=== PATIENT | male | born 1945 | race African-American/Black ===

== ENCOUNTER 2017-02-01 23:14 | Inpatient (IN) ==
[2017-02-02] MEDS ORDERED: ONDANSETRON 4 MG/2 ML VIAL IV STA (00:14)
[2017-02-02] MEDS ORDERED: cefTRIAXone 1,000 MG in SODIUM CHLORIDE 0.9% 100 ML IV STA (00:14)
[2017-02-02] MEDS ORDERED: methylPREDNISolone SOD SUC 125 MG/2 ML VIAL IV STA (00:14)
[2017-02-02] MEDS ORDERED: ALBUTEROL 2.5 MG/3 ML NEB RESP TX SCH (00:30)
[2017-02-02] MEDS ORDERED: cefTRIAXone 1,000 MG VIAL ONE (00:34)
[2017-02-02] MEDS ORDERED: SODIUM CHLORIDE 0.9% 100 ML IV ONE (00:34)
[2017-02-02 01:08] LABS: Basophils # 0.1 10*3/uL (0.0-0.2); Basophils % 0.5 % (0.0-0.8); Eosinophils % 0.2 % (0.00-10.9); Hematocrit 39.2 VOL% (42.0-52.0); Hemoglobin 13.3 GM/DL (14.0-18.0); Immature Granulocytes Absolute 0.11 #; Lymphocytes # 1.6 10*3/uL (1.4-4.0); Lymphocytes % 14.3 % (21.2-54.2); Mean Corpuscular HGB Conc 33.9 GM/DL (32-36); Mean Corpuscular Hemoglobin 23 PG (27-34); Mean Platelet Volume 11.3 FL (9.6-12.0); Monocytes # 1.1 10*3/uL (0.11-0.8); Monocytes % 10.1 % (1.7-12.7); Neutrophils # 8.1 10*3/uL (1.4-7.4); Neutrophils % 73.9 % (38.7-73.9); Platelet Count 137 T/CUMM (130-400); Red Blood Count 5.85 MC/CUMM (3.8-5.5); Red Cell Distribution Width 15.6 % (9.3-17.3)
[2017-02-02 01:26] LABS: Alanine Aminotransferase 12 U/L (16-61); Albumin 3.6 G/DL (3.4-5.0); Alkaline Phosphatase 61 U/L (45-117); Aspartate Amino Transferase 15 U/L (0-37); Blood Urea Nitrogen 10 MG/DL (7-18); Calcium 8.6 MG/DL (8.5-10.1); Glucose 112 MG/DL (74-106); Potassium 3.5 MMOL/L (3.5-5.1); Sodium 136 MMOL/L (136-145); Total Protein 7.4 G/DL (6.4-8.3); Troponin I Only < 0.015 NG/ML (0.00-0.045)
[2017-02-02] MEDS ORDERED: LEVOFLOXACIN 750 MG TABLET PO STA (01:35)
[2017-02-02] MEDS ORDERED: LEVOFLOXACIN 750 MG TABLET ONE (01:55)
[2017-02-02] MEDS ORDERED: methylPREDNISolone SOD SUC 125 MG/2 ML VIAL ONE (01:55)
[2017-02-02] MEDS ORDERED: ONDANSETRON 4 MG/2 ML VIAL ONE (01:55)
[2017-02-02] MEDS ORDERED: ZALEPLON 5 MG CAPSULE PO PRN (03:24)
[2017-02-02] MEDS: SODIUM CHLORIDE 0.9% 1,000 ML IV SCH ×3 (05:13→19:01)
[2017-02-02] MEDS ORDERED: ONDANSETRON 4 MG/2 ML VIAL IV PRN (06:52)
[2017-02-02 07:08] LABS: Basophils % 0.1 % (0.0-0.8); Hematocrit 39.5 VOL% (42.0-52.0); Hemoglobin 13.1 GM/DL (14.0-18.0); Immature Granulocytes % 0.9 %; Immature Granulocytes Absolute 0.09 #; Lymphocytes # 0.7 10*3/uL (1.4-4.0); Lymphocytes % 6.9 % (21.2-54.2); Mean Corpuscular HGB Conc 33.2 GM/DL (32-36); Mean Corpuscular Hemoglobin 22 PG (27-34); Mean Corpuscular Volume 67.3 FL (87-102); Mean Platelet Volume 12.3 FL (9.6-12.0); Monocytes # 0.2 10*3/uL (0.11-0.8); Neutrophils # 9.5 10*3/uL (1.4-7.4); Neutrophils % 90.1 % (38.7-73.9); Platelet Count 147 T/CUMM (130-400); Red Blood Count 5.87 MC/CUMM (3.8-5.5); White Blood Count 10.5 T/CUMM (4-12)
[2017-02-02] MEDS: ALBUTEROL/IPRATROPIUM 3 ML NEB RESP TX SCH ×3 (07:30→19:34)
[2017-02-02 07:41] LABS: Apearance,Urine CLEAR (Clear); Bilirubin,Urine Negative (Negative); Blood, Urine Negative (Negative); Glucose,Urine (UA) Negative (Negative); Ketones,Urine Negative (Negative); Mucus,Urine Occasional /LPF (Occasional); Nitrite,Urine Negative (Negative); Protein,Urine Negative; RBC,Urine <1 /HPF (0-4); Urine Color Yellow (Yellow); Urine Specific Gravity 1.017 (1.001-1.035); WBC,Urine 1 /HPF (0-6)
[2017-02-02 07:42] LABS: Calcium 8.5 MG/DL (8.5-10.1); Osmolality,Calculated 277.7 MOS/KG (273-304); Potassium 3.4 MMOL/L (3.5-5.1)
[2017-02-02] MEDS ORDERED: methylPREDNISolone SOD SUC 40 MG/1 ML VIAL IV SCH (08:00)
[2017-02-02] MEDS ORDERED: hydrOXYzine HCL 25 MG TABLET PO PRN (08:02)
[2017-02-02] MEDS ORDERED: ALBUTEROL 2.5 MG/3 ML NEB RESP TX PRN (08:02)
[2017-02-02] MEDS ORDERED: POTASSIUM CHLORIDE RIDER 10 MEQ in PREMIX 1 EACH IV PRN (08:03)
[2017-02-02] MEDS: ASPIRIN EC 81 MG TABLET PO SCH (09:27)
[2017-02-02] MEDS: ENOXAPARIN 40 MG/0.4 ML SYRINGE SUBCUT SCH (09:27)
[2017-02-02] MEDS: LISINOPRIL 20 MG TABLET PO SCH ×2 (09:27→21:13)
[2017-02-02] MEDS: CETIRIZINE 10 MG TABLET PO SCH (09:27)
[2017-02-02] MEDS: amLODIPine 10 MG TABLET PO SCH (09:27)
[2017-02-02] MEDS: MEMANTINE 10 MG TABLET PO SCH ×2 (09:27→21:13)
[2017-02-02] MEDS: NICOTINE 21 MG/24 HR PATCH TRANSDERM SCH (09:27)
[2017-02-02] MEDS: POTASSIUM CHLORIDE 20 MEQ TABLET PO PRN ×3 (10:43→15:27)
[2017-02-02] MEDS: CARVEDILOL 25 MG TABLET PO SCH ×2 (10:43→21:13)
[2017-02-02] MEDS: LORazepam 0.5 MG TABLET PO PRN (15:37)
[2017-02-02] MEDS ORDERED: DONEPEZIL 10 MG TABLET PO SCH (21:00)
[2017-02-02] MEDS ORDERED: LEVOFLOXACIN INJ 750 MG in PREMIX 1 EACH IV SCH (21:00)
[2017-02-03] MEDS: ALBUTEROL/IPRATROPIUM 3 ML NEB RESP TX SCH ×2 (00:07→07:10)
[2017-02-03 06:20] LABS: Basophils % 0.3 % (0.0-0.8); Hematocrit 35.7 VOL% (42.0-52.0); Hemoglobin 12.3 GM/DL (14.0-18.0); Immature Granulocytes % 0.7 %; Immature Granulocytes Absolute 0.11 #; Lymphocytes # 1.6 10*3/uL (1.4-4.0); Lymphocytes % 10.5 % (21.2-54.2); Mean Corpuscular HGB Conc 34.5 GM/DL (32-36); Mean Corpuscular Hemoglobin 23 PG (27-34); Mean Corpuscular Volume 66.1 FL (87-102); Mean Platelet Volume 11.7 FL (9.6-12.0); Monocytes # 1.1 10*3/uL (0.11-0.8); Monocytes % 6.9 % (1.7-12.7); Neutrophils # 12.4 10*3/uL (1.4-7.4); Neutrophils % 81.6 % (38.7-73.9); Platelet Count 137 T/CUMM (130-400); White Blood Count 15.2 T/CUMM (4-12)
[2017-02-03 06:46] LABS: Giant Platelets Few; Hypochromasia 1+; Ovalocytes Slight; Platelet Estimate Normal
[2017-02-03 06:48] LABS: Calcium 8.4 MG/DL (8.5-10.1); Osmolality,Calculated 279.3 MOS/KG (273-304); Potassium 3.9 MMOL/L (3.5-5.1)
[2017-02-03 07:14] VITALS: BP 129/67
[2017-02-03] MEDS: SODIUM CHLORIDE 0.9% 1,000 ML IV SCH (07:54)
[2017-02-03] MEDS: LORazepam 0.5 MG TABLET PO PRN (09:00)
[2017-02-03] MEDS: LISINOPRIL 20 MG TABLET PO SCH (10:37)
[2017-02-03] MEDS: ENOXAPARIN 40 MG/0.4 ML SYRINGE SUBCUT SCH (10:37)
[2017-02-03] MEDS: CARVEDILOL 25 MG TABLET PO SCH (10:37)
[2017-02-03] MEDS: amLODIPine 10 MG TABLET PO SCH (10:37)
[2017-02-03] MEDS: NICOTINE 21 MG/24 HR PATCH TRANSDERM SCH (10:37)
[2017-02-03] MEDS: ASPIRIN EC 81 MG TABLET PO SCH (10:37)
[2017-02-03] MEDS: MEMANTINE 10 MG TABLET PO SCH (10:37)
[2017-02-03] MEDS: CETIRIZINE 10 MG TABLET PO SCH (10:38)
== END 2017-02-03 09:04 | disposition home or self-care (01) | DRG 202 ==
LOC: N.ED 23:14 → N.EDINP 02-02 02:03 → N.5E 02-02 03:06